=== PATIENT | male | born 1955 | race Caucasian/White ===

== ENCOUNTER → 2018-07-06 | Outpatient (CLI) | payer BC ==
[~2018-07-06] MED LIST: GLUCOSAMINE &1 EACH PO; METFORMIN HCL500 MG PO; NEXIUM40 MG PO; PRILOSEC 20 MG20 MG PO
== END ==
LOC: CAT 11:30
DX: I25.10 Atherosclerotic heart disease of native coronary artery without angina pectoris (principal)

== ENCOUNTER → 2020-01-16 | Outpatient (CLI) | payer BC ==
[~2020-01-16] MED LIST changes: +ASA81BEC PO; +ATORVASTATIN CA80 MG PO; +ELIQUIS5 MG PO; +FARXIGA10 MG PO; +FLUTICASONE PRO16 GM NASAL; +LORCET 5-325 M1 EACH PO; +METOPROLOL SUCC25 M1 PO; +OMEPRAZOLE 20 M20 M1 PO; +PIOGLITAZONE15 MG
== END ==
LOC: LAB 07:40
PROVIDERS: ATTEND Surgery
DX: Z01.812 Encounter for preprocedural laboratory examination (principal); Z20.828 Contact with and (suspected) exposure to other viral communicable diseases

== ENCOUNTER 2020-01-18 06:08 | Day surgery (SDC) | payer BC ==
[~2020-01-18] VITALS: Ht 170.2 cm; Wt 72.6 kg
--- NOTE | ~2020-01-18 | O ---
[facility] [place] [address] OPERATIVE REPORT Name: EMERALD LAWRENCE Room #: DEP [facility].#: [id number] Admission: 01/18/20 Attend Phys: Aristeo Petersen MD Discharge: 01/18/20 Date of : 59 Report #: [id number] THIS REPORT FOR: cc: Leland Myles MD, Stanley P. MD Chu, Peter Y. MD ~ CC: Aristeo Myles MD DATE OF SERVICE: 01/18/2020 PREOPERATIVE DIAGNOSIS: Abdominal pain secondary to foreign body in the epigastric area, status post repair of incisional hernia years ago. POSTOPERATIVE DIAGNOSIS: Abdominal pain secondary to foreign body in the epigastric area, status post repair of incisional hernia years ago. PROCEDURE PERFORMED: Removal of foreign body, multiple Prolene suture with knots. ANESTHESIA: IV sedation, local 0.25% Marcaine. ESTIMATED BLOOD LOSS: 5 mL. SURGEON: Aristeo Petersen MD PROCEDURE NOTE: After the patient was sedated, the abdomen was prepped and draped in a sterile fashion. A 0.25% Marcaine was used to anesthetize the skin surrounding the suture material. An incision was made directly over the suture material which is now slightly lower to his previous incision. ____ area. After incising through the skin and subcutaneous tissue, a Prolene stitch that was popping out causing pain was identified. This was isolated. This was removed. The stitch is a running stitch, I followed it medially and another knot was found medially. The knot was removed along with the running suture, also laterally was followed. There was a third knot right laterally and knot was found. This was removed. The fascia was intact and scarred down. I think the mesh is ____ posterior to the fascia. No other foreign bodies identified. Irrigation was performed. Skin was closed with 5-0 PDS. Steri-Strips applied. By: [id number] Aristeo Petersen MD /nt
[~2020-01-18 06:08] MED LIST changes: -LORCET 5-325 M1 EACH PO
--- NOTE | 2020-01-18 07:53 | EKG ---
[facility] [place] [address] ELECTROCARDIOGRAM REPORT Name: EMERALD LAWRENCE Room #: 150-2 [facility] M.R.#: [id number] Admission: 01/18/20 Attend Phys: Aristeo Petersen MD Discharge: Date of : 59 Report #: [id number] THIS REPORT FOR: cc: Leland Myles MD, Stanley P. MD Lundgren, Craig H. 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 : 1955 Requested By: Aristeo Petersen Order Number: [id number] MD: Tomás Belcher Measurements Intervals Freedom Rate: 58 P: 57 CO: 151 QRS: 82 QRSD: 97 T: 69 QT: 415 QTc: 408 Interpretive Statements Sinus rhythm Borderline right axis deviation Nonspecific ST segment abnormality Compared to ECG 09/26/2000 16:22:[address] segment abnormality is now present Electronically Signed On 01-18-2020 7:53:13 CDT by Tomás Belcher [email or web address] <ELECTRONICALLY SIGNED> By: Tomás Belcher MD, [facility] 01/18/20 0753 [id number] [id number] Tomás Belcher MD, [facility] /EPI
[2020-01-18] MEDS ORDERED: LORCET 5-325 M1 EACH PO (08:24)
[2020-01-18 08:38] VITALS: BP 127/77
[2020-01-18 08:44] VITALS: BP 127/77
--- NOTE | 2020-01-22 16:06 | PATH ---
[facility] [address] [place] [address] PATHOLOGY RPT PROCEDURE Name: MAREK GARCIA Room #: DEP [facility].#: [id number] Admission: 01/18/20 Date of : 59 Discharge: 01/18/20 Report #: [id number] Path Case #: [id number] [facility] Accession Number: [id number] . 01 Material submitted: . abdomen - FOREIGN BODY (SUTURE). Modifiers: wall . 02 Diagnosis: Foreign body, abdominal wall, removal: - Blue suture material (gross exam only). . (IUV:mml; 01/22/2020) [facility] 01/22/2020 1225 Local . 02 Electronically signed: . Samia Baird MD, Pathologist NPI- [id number] . 01 Gross description: . The specimen is received in formalin, labeled "Marek Garcia, foreign body suture" and "abdominal wall" per problem specimen form. Received are 4 blue sutures measuring between 1.7 x 0.6 x 0.1 cm and 3.9 x 0.1 x 0.1 cm. A gross photo is taken. (SDY; 01/21/2020) SYU/SYU 01/21/2020 1637 Local . 02 Pathologist provided ICD-10: M79.5 . 02 CPT . 641699 Specimen Comment: A courtesy copy of this report has been sent to [phone], [phone] Specimen Comment: [phone] Specimen Comment: Report sent to / DR RIZO Performed at: [address], [place] [id number] MD Smith Wilcox MD Phone: [phone] Performed at: [address] [id number] MD Samia Baird MD Phone: [phone]
== END 2020-01-18 09:15 | disposition home or self-care (01) ==
LOC: OR 06:08 → TBA 06:13 → OR 09:15
PROVIDERS: ATTEND Surgery
DX: R10.9 Unspecified abdominal pain (principal); S30.851A Superficial foreign body of abdominal wall, initial encounter; E11.9 Type 2 diabetes mellitus without complications; I25.2 Old myocardial infarction; K21.9 Gastro-esophageal reflux disease without esophagitis; Z98.890 Other specified postprocedural states; Z79.899 Other long term (current) drug therapy; Z90.49 Acquired absence of other specified parts of digestive tract; Z85.828 Personal history of other malignant neoplasm of skin; Z79.01 Long term (current) use of anticoagulants; X58.XXXA Exposure to other specified factors, initial encounter; Y93.89 Activity, other specified; Y92.89 Other specified places as the place of occurrence of the external cause; Y99.8 Other external cause status; Y83.8 Other surgical procedures as the cause of abnormal reaction of the patient, or of later complication, without mention of misadventure at the time of the procedure
CPT/HCPCS: 50010; 50101; 50386; 50417; 56526; 62110; 62850; 70005